=== PATIENT | male | born 1955 | race Caucasian/White ===

== ENCOUNTER 2016-12-17 10:46 | Day surgery (SDC) | payer OTHER ==
[2016-12-17] MEDS ORDERED: Bupivacaine 0.25% SDV* 30 ML ONE (12:55)
[2016-12-17] MEDS ORDERED: Sodium Bicarbonate 8.4% IV* 50 ML VIAL ONE (13:01)
[2016-12-17] MEDS ORDERED: Lidocaine 1% INJ* 10 MG/ML 30 ML SDV ONE ×2 (13:01→13:02)
[2016-12-17] MEDS ORDERED: Lidocain 1% EPI 1:100,000 * 30 ML MDV ONE (13:07)
[2016-12-17 14:30] VITALS: BP 153/81
--- NOTE | 2016-12-18 06:42 | OP ---
DATE OF OPERATION: 12/17/16 [facility] DATE OF : 59 SURGEON: Arnaldo Bernal MD [employer]INE OPERATOR: NEELIMA Singh ANESTHESIOLOGIST: None. ANESTHESIA: Local only with 1% lidocaine with epinephrine and bicarbonate. PRE-OP DIAGNOSIS: Right carpal tunnel syndrome. POST-OP DIAGNOSIS: Right carpal tunnel syndrome. OPERATIVE PROCEDURE: Right open carpal tunnel release. INDICATIONS: Mr. Frederick is a 61-year-old man who has longstanding history of progressive numbness and tingling in both hands, worse on the right. He has had electrodiagnostic studies, which confirmed moderate carpal tunnel syndrome. He has tried splinting. He has tried nonoperative treatment. We talked about risks and benefits. He wanted to proceed. ESTIMATED BLOOD LOSS: 5 mL. COMPLICATIONS: None. FINDINGS: Extensive flexor tenosynovitis. DESCRIPTION OF PROCEDURE: Nathan was seen in the preoperative holding area. The correct site, side, and procedure were identified. We had a time-out and then I anesthetized the operative area with 1% lidocaine with epinephrine and bicarbonate. Short time later, we came back to the operating room and the arm was prepped and draped in the usual fashion and formal time-out was performed. I began by making a 2- to 3-cm longitudinal incision in standard location for an open carpal tunnel release. Dissection was carried down through the subcutaneous tissue and palmar fascia to expose the transverse carpal ligament. This was released just off the radial aspect of the hook of the hamate. The release was carried out from distal to proximal. Once I completed the release distal and I got to the proximal aspect of the incision, I went ahead and released the subcutaneous tissue and retracted it volarly and ulnarly. Under direct visualization, I then used a tenotomy scissors to snip the rest of the transverse carpal ligament, distal antebrachial fascia. I then checked the decompression and I felt like there was some band right at the wrist flexion crease and just proximal to that that were inadequately released. At this point , I did not feel like it was safe to explore that area further without extending the incision, as the visualization was just not adequate enough for that. I, therefore, brought my incision back across the wrist flexion crease in Roosevelt-type fashion and back towards the palmaris longus tendon just on the ulnar aspect of it. I was able to then take my dissection down, and indeed I encountered quite a few traversing collagen fibers which I released. Once I had release of this, there was absolutely no compression on the nerve. I then examined things and there was extensive flexor tenosynovitis in the area of the carpal tunnel. I excised this. The median nerve was identified and protected throughout the procedure. The motor branch was identified. He did indeed have a transligamentous motor branch. Once I felt like the decompression was complete, I went ahead and irrigated out the wound. The skin was then closed with 4-0 nylon suture. The operative area was infiltrated with a little bit of 0.25% Marcaine. The wound was then dressed with Xeroform, 4x4s, sterile Webril, and an Josué wrap. He was then taken to the recovery room in stable condition. [id number]/[facility] #: [id number] JESSICA
== END 2016-12-17 14:11 | disposition home or self-care (01) ==
LOC: OREAST 10:46
PROVIDERS: ATTEND Orthopaedic Surgery Hand Surgery
DX: G56.01 Carpal tunnel syndrome, right upper limb (principal); Z87.891 Personal history of nicotine dependence
CPT/HCPCS: 88304; J2001

== ENCOUNTER 2017-06-24 07:20 | Day surgery (SDC) | payer OTHER ==
[2017-06-24] MEDS ORDERED: Lidocaine 1% MPF wEPI 200,000* 30 ML SDV ONE (09:32)
[2017-06-24] MEDS ORDERED: Sodium Bicarbonate 8.4% SYR* 10 ML SYRINGE ONE (09:33)
[2017-06-24] MEDS ORDERED: Sodium Bicarbonate 8.4%* 50 ML SYRINGE ONE (09:33)
[2017-06-24] MEDS ORDERED: Bupivacaine 0.25% SDV* 30 ML ONE (10:17)
[2017-06-24 11:20] VITALS: BP 152/85
--- NOTE | 2017-06-25 12:55 | OP ---
DATE OF OPERATION: 06/24/17 - [facility] DATE OF : 59 SURGEON: Arnaldo Bernal MD. [employer] WINDER: NEELIMA Cabral. ANESTHESIOLOGIST: None. ANESTHESIA: Local only with 1% lidocaine with epinephrine and bicarbonate. PRE-OP DIAGNOSIS: Left carpal tunnel syndrome. POST-OP DIAGNOSIS: Left carpal tunnel syndrome. OPERATIVE PROCEDURE: Left open carpal tunnel release. INDICATIONS: Nathan has done well with the right carpal tunnel release. We had talked about risks and benefits; he wanted to proceed with the left carpal tunnel release. ESTIMATED BLOOD LOSS: 5 mL. COMPLICATIONS: None. FINDINGS: As expected. DESCRIPTION OF PROCEDURE: Nathan was seen in the preoperative holding area. The correct site, side, and procedure were identified. We had a time-out and then I infiltrated the operative area with 1% lidocaine with epinephrine and 8.4 % bicarbonate. We then came back to the operating room, the arm was prepped and draped in the usual fashion. A time-out was performed. I made a 2 to 3 cm incision, a standard longitudinal incision in the standard location for an open carpal tunnel release. Dissection was carried down through the subcutaneous tissue and palmar fascia. Transverse carpal ligament was then released off the radial aspect of the hook of the hamate. The release was continued distally and then proximally with the tenotomy scissors. Proximally I had released the subcutaneous tissue and fascia and retracted this volarly and ulnarly with a Christie retractor; and then, under direct visualization , I released the remainder of the transverse carpal ligament. Once the nerve was released in its entirety, I irrigated out the wound. Skin was closed with 3 -0 Monocryl suture. Wound was dressed with Xeroform, 4x4s, sterile Webril, and an Josué bandage. He was then taken to the recovery room in stable condition. [id number]/[facility] #: [id number] [facility]ENT[facility]bony
== END 2017-06-24 11:08 | disposition home or self-care (01) ==
LOC: OR 07:20
PROVIDERS: ATTEND Orthopaedic Surgery Hand Surgery
DX: G56.02 Carpal tunnel syndrome, left upper limb (principal); M06.9 Rheumatoid arthritis, unspecified; Z87.891 Personal history of nicotine dependence
CPT/HCPCS: J2001